=== PATIENT | male | born 1955 | race African-American/Black ===

== ENCOUNTER 2021-10-06 09:32 | Emergency (ER) | payer OTHER, MEDICARE ==
[~2021-10-06] VITALS: Ht 177.8 cm; Wt 127.0 kg
[2021-10-06 10:12] LABS: BASOPHILS % 0.7 % (0.0-2.0); EOSINOPHILS % 1.6 % (0.0-5.0); HEMATOCRIT. 36.8 % (42.0-52.0); HEMOGLOBIN. 12.6 g/dL (14.0-18.0); LYMPHOCYTES % 19.2 % (20.0-50.0); MEAN CORPUSCULAR VOLUME 84.4 fL (80.0-94.0); MONOCYTES % 6.5 % (2.0-8.0); PLATELET 269 x1000/uL (130-400); RED BLOOD CELL COUNT 4.36 mill/uL (4.7-6.1); RED CELL DISTRIBUTION WIDTH 14.4 % (11.6-14.6)
[2021-10-06 10:20] LABS: CHLORIDE 111 mEq/L (98-107)
[2021-10-06 10:28] LABS: ETHANOL BLOOD < 10 mg/dL
[2021-10-06] MEDS ORDERED: ASPIRIN 325MG EC TABLET PO ONE (11:00)
[2021-10-06 12:23] LABS: CLARITY URINE CLEAR (CLEAR); COLOR URINE YELLOW (YELLOW); KETONES URINE NEGATIVE (NEGATIVE); LEUKOCYTE ESTERASE URINE NEGATIVE (NEGATIVE); NITRITE URINE NEGATIVE (NEGATIVE); OCCULT BLOOD URINE NEGATIVE (NEGATIVE); PROTEIN URINE NEGATIVE (NEGATIVE); SPECIFIC GRAVITY URINE 1.011 (1.005-1.030)
[2021-10-06 12:41] LABS: *AMPHETAMINES SCREEN URINE NEGATIVE (NEGATIVE); *BARBITURATES SCREEN URINE NEGATIVE (NEGATIVE); *BENZODIAZEPINES SCREEN URINE NEGATIVE (NEGATIVE); *COCAINE SCREEN URINE NEGATIVE (NEGATIVE); CANNABINOID URINE SCREEN NEGATIVE (NEGATIVE); METHADONE URINE SCREEN NEGATIVE (NEGATIVE); OPIATES URINE SCREEN PRESUMTIVE POSITIVE (NEGATIVE); PHENCYCLIDINE URINE SCREEN NEGATIVE (NEGATIVE)
[2021-10-06 16:00] VITALS: BP 183/68
[2021-10-06] MEDS ORDERED: HYDRALAZINE 20MG/ML VIAL IV ONE (16:45)
== END 2021-10-06 18:53 | disposition short-term general hospital (02) ==
LOC: ER 09:32
DX: I63.9 Cerebral infarction, unspecified (principal); I10 Essential (primary) hypertension; R00.1 Bradycardia, unspecified; M21.372 Foot drop, left foot; M21.371 Foot drop, right foot; Z20.822 Contact with and (suspected) exposure to COVID-19; E11.9 Type 2 diabetes mellitus without complications; Z86.73 Personal history of transient ischemic attack (TIA), and cerebral infarction without residual deficits
CPT/HCPCS: 36415; 70450; 71045; 80053; 80305; 80320; 81003; 85025; 87426; 93005; 96374; 99291; J0360; G0480

== ENCOUNTER 2025-03-15 05:55 | Emergency (ER) | payer MEDICARE, OTHER ==
[~2025-03-15] VITALS: Ht 177.8 cm; Wt 136.0 kg
[2025-03-15 05:57] VITALS: O2SAT 97
[2025-03-15] MEDS: MORPHINE SULFATE 4 MG/ML INJ (FOR IV/IM USE) IV ONE ×2 (06:42→08:32)
[2025-03-15] MEDS: KETOROLAC 15MG/ML VIAL IV ONE (06:43)
[2025-03-15 07:33] LABS: CREATININE 1.1 mg/dL (0.6-1.3); UREA NITROGEN BLOOD 15 mg/dL (9-23)
[2025-03-15 07:41] LABS: BASOPHILS % 1.0 % (0.0-2.0); EOSINOPHILS % 1.8 % (0.0-5.0); HEMATOCRIT. 32.2 % (42.0-52.0); HEMOGLOBIN. 10.9 g/dL (14.0-18.0); LYMPHOCYTES % 20.2 % (20.0-50.0); MEAN PLATELET VOLUME 9.1 fl (7.4-10.4); MONOCYTES % 8.3 % (2.0-8.0); NEUTROPHILS % 68.7 % (40.0-76.0); PLATELET 260 x1000/uL (130-400); RED BLOOD CELL COUNT 3.77 mill/uL (4.7-6.1); RED CELL DISTRIBUTION WIDTH 13.7 % (11.6-14.6)
[2025-03-15 10:12] VITALS: BP 174/71; PULSE 79; RESP 18; TEMP 36.9; O2SAT 100
== END 2025-03-15 10:49 | disposition short-term general hospital (02) ==
LOC: ER 05:55 → CMPBEDREQ 11:31
DX: M16.11 Unilateral primary osteoarthritis, right hip (principal); E11.9 Type 2 diabetes mellitus without complications; I10 Essential (primary) hypertension; Z96.649 Presence of unspecified artificial hip joint
CPT/HCPCS: 99285; 96374; 96375; 80048; 85025; 36415; 73501; 96376; J1885; J2270